=== PATIENT | male | born 1960 ===

== ENCOUNTER 2016-07-30 20:18 | Observation (INO) | payer SELFPAY ==
--- NOTE | 2016-07-30 20:44 | C.PDOC ---
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 Pt is non-verbal and unable to obtain Hx from pt at this time. (Nagi Garay) History/Exam Limitations: clinical condition Onset/Duration Of Symptoms: Hrs Current Symptoms Are (Timing): Still Present Severity: Mild <Nagi Garay - Last Filed: 07/31/16 00:47> <Yaya Servin - Last Filed: 07/31/16 05:43> Time Seen by Provider: 07/30/16 20:32 Chief Complaint (Nursing): Medical Clearance Past Medical History Reviewed: Historical Data, Nursing Documentation, Vital Signs Family History: States: Unknown Family Hx - Social History Hx Alcohol Use: Yes Hx Substance Use: No - Immunization History Hx Tetanus Toxoid Vaccination: No Hx Influenza Vaccination: No Hx Pneumococcal Vaccination: No <Nagi Garay - Last Filed: 07/31/16 00:47> Review Of Systems Review Of Systems: ROS cannot be obtained secondary to pt's inabilty to answer questions. Neurological: Positive for: Altered Mental Status <Nagi Garay - Last Filed: 07/31/16 00:47> Physical Exam - Physical Exam Appears: Other (+ AOB. NOn-verbal) Skin: No Rash Head: Atraumatic, Normacephalic Eye(s): bilateral: Normal Inspection, PERRL Oral Mucosa: Moist Neck: Midline Cervical Tenderness, Supple Chest: No Tenderness Cardiovascular: Rhythm Regular, Other (Radial pulse 2+ bilaterally.) Respiratory: Other (Clear to auscultation bilaterally.) Gastrointestinal/Abdominal: Soft, No Tenderness, No Distention Back: No CVA Tenderness Extremity: Normal ROM (Full ROM X4), No Tenderness, No Swelling Extremity: Bilateral: Normal ROM Neurological/Psych: Other (Alert, no focal deficit.) <Nagi Garay - Last Filed: 07/31/16 00:47> ED Course And Treatment O2 Sat by Pulse Oximetry: 100 (RA) Pulse Ox Interpretation: Normal - CT Scan/US CT Head w/o contrast Other Rad Studies (CT/US): Interpreted By Me, Read By Radiologist CT/US Interpretation: EXAM: CT Head Without Intravenous Contrast. CLINICAL HISTORY: 56 years old, male; Signs and symptoms; Altered mental status/memory loss; Confusion or. disorientation; Additional info: AMS. TECHNIQUE: Axial computed tomography images of the head/brain without intravenous contrast. This CT exam. was performed using one or more of the following dose reduction techniques: automated exposure. control, adjustment of the mA and/or kV according to patient size, and/or use of iterative. reconstruction technique. EXAM DATE/TIME: Exam ordered 07/30/2016 8:28 PM. COMPARISON: No relevant prior studies available. FINDINGS: Brain: Unremarkable. No hemorrhage. No significant white matter disease. No edema. Ventricles: Unremarkable. No ventriculomegaly. Bones/joints: Unremarkable. No acute fracture. Soft tissues : Unremarkable. Sinuses: Mucosal thickening is noted within the sphenoid, maxillary ethmoid and frontal sinuses. Mastoid air cells: Unremarkable as visualized. No mastoid effusion. Auditory system: Soft tissue/debris is noted within the external auditory canal left. IMPRESSION: 1. No acute findings in the brain. 2. Chronic kirby paranasal sinusitis. 3. Soft tissue debris noted in the external left auditory canal. Direct visualization suggested. 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 2129 Sleeping, no acute distress. 2329 Intoxicated, no acute distress. 0046 Sleeping, remains intoxicated. Will sign out to ER night team. (Nagi Garay) Disposition <Nagi Garay - Last Filed: 07/31/16 00:47> Counseled Patient/Family Regarding: Diagnosis - Disposition Disposition Time: :43 - POA Present On Arrival: None <Yaya Servin - Last Filed: 07/31/16 05:43> - Disposition Disposition: HOME/ ROUTINE Condition: STABLE - Clinical Impression Clinical Impression: Alcohol abuse - Scribe Statement The provider has reviewed the documentation as recorded by the Scribe <Nagi Garay - Last Filed: 07/31/16 00:47> <Yaya Servin - Last Filed: 07/31/16 05:43> - Scribe Statement Sherine peterson All medical record entries made by the Scribe were at my direction and personally dictated by me. I have reviewed the chart and agree that the record accurately reflects my personal performance of the history, physical exam, medical decision making, and the department course for this patient. I have also personally directed, reviewed, and agree with the discharge instructions and disposition. (Nagi Garay)
[2016-07-31 05:42] VITALS: BP 127/72; PULSE 68; RESP 18; TEMP 97.6; O2SAT 97
--- NOTE | 2016-07-31 08:19 | CT ---
PROCEDURE: CT HEAD WITHOUT CONTRAST. HISTORY: Altered mental status COMPARISON: None available. TECHNIQUE: Axial computed tomography images were obtained through the head/brain without intravenous contrast. Radiation dose: Total exam DLP = 1083 mGy-cm. This CT exam was performed using one or more of the following dose reduction techniques: Automated exposure control, adjustment of the mA and/or kV according to patient size, and/or use of iterative reconstruction technique. FINDINGS: HEMORRHAGE: No intracranial hemorrhage. BRAIN: No mass effect or edema. No atrophy or chronic microvascular ischemic changes. VENTRICLES: Unremarkable. No hydrocephalus. CALVARIUM: Unremarkable. PARANASAL SINUSES: Mucosal thickening noted within the sphenoid, maxillary, ethmoid, and frontal sinuses. MASTOID AIR CELLS: Unremarkable as visualized. No inflammatory changes. OTHER FINDINGS: Soft tissue and debris noted within the external auditory canal on the left. IMPRESSION: No acute intracranial abnormality. Chronic kirby paranasal sinusitis. Soft tissue debris noted in the external auditory canal on the left. Direct visualization suggested. If focal neurologic deficit persists, consider MRI. These findings were preliminarily reported at 9:09 p.m. on 07/30/[address] Lisa Brar from [facility].
--- NOTE | 2016-07-31 08:48 | CT ---
CT cervical spine History: Midline tenderness. No prior surgery. Comparison: None available. Technique: Multiple contiguous axial images were performed through the cervical spine without the use of intravenous contrast. Subsequently, sagittal and coronal reformatted images were created and reviewed. This CT exam was performed using one or more of the following dose reduction techniques: Automated exposure control, adjustment of the mA and/or kV according to patient size, and/or use of iterative reconstruction technique. Findings: A metallic plate is affixed to the anterior aspect of the C4, C5, and C6 vertebral bodies with threaded screws. A metallic cage is positioned within the vertebral bodies from C4 thru C6. No evidence of acute displaced fracture. Evaluation for disc disease and spinal canal stenosis is limited on CT scan. Correlation with MRI is recommended for further evaluation if clinically indicated. C2-3: Circumferential posterior disc bulge. C3-4: Grade 1 spondylolisthesis at this level with 4 millimeters of retrolisthesis of C3 on C4. Prominent posterior disc osteophyte ridge complex which impresses upon the ventral margin of the thecal sac and spinal cord at this level. Moderate to severe spinal canal stenosis at this level. Moderate foraminal stenosis bilaterally. C4-5: Disc spaces appear fused. Spinal canal images are degraded by beam hardening artifact from the hardware. C5-6: Disc spaces appear fused. Posterior marginal osteophytes are noted. Axial images are degraded by beam hardening artifact. Spinal canal does appear at least moderately stenotic at this level on the sagittal images. C6-7: Small disc osteophyte ridge complex. Mild to moderate stenosis suggested on the sagittal images. Debris is noted within the external auditory canal on the left. Mucosal thickening noted within the maxillary and sphenoid air cells. Heterogeneity of the thyroid with a questionable nodule in the right lobe of the thyroid. Impression: No evidence for acute displaced fracture. Postoperative changes related to anterior spinal fusion at the C4-5 and C5-6 levels. Central spinal canal stenosis at the C5-6 and C6-7 levels. Correlation with MRI may be helpful if clinically indicated. 4 millimeters of retrolisthesis of C3 on C4 with moderate foraminal stenosis and moderate to severe central canal stenosis. Correlation with MRI may be helpful if clinically indicated. Additional disc findings as above. Mucosal thickening of the maxillary and sphenoid sinuses. If pain persists, further evaluation with MRI is recommended if clinically indicated. These findings were preliminarily reported at 9:27 p.m. on 07/30/[address] Lisa Brar from [facility].
== END 2016-07-31 05:42 | disposition home or self-care (01) ==
LOC: C.ER 20:18 → EDBD 20:18 → C.9OBSV 20:40
PROVIDERS: ADMIT Student in an Organized Health Care Education/Training Program; ATTEND Student in an Organized Health Care Education/Training Program
DX: F10.129 Alcohol abuse with intoxication, unspecified (principal)
CPT/HCPCS: 70450; 72125; 99285; G0378; G0480